=== PATIENT | female | born 1945 | race Caucasian/White ===

== ENCOUNTER 2018-09-11 09:30 | Day surgery (SDC) | payer MEDICARE, BC ==
[2018-09-11] VITALS (9 sets, daily range): BP systolic 107–133; BP diastolic 64–83; PULSE 47–67; TEMP 97.6–98
[~2018-09-11] VITALS: Ht 185.5 cm; Wt 99.0 kg
[2018-09-11] MEDS ORDERED: TENORMIN 2525 MG/TAB PO (10:23)
[2018-09-11] MEDS ORDERED: HCTZ12.5TAB PO (10:24)
[2018-09-11] MEDS ORDERED: ZESTRIL 20MG TA20 MG PO (10:24)
[2018-09-11] MEDS ORDERED: MASON NATURAL1200 MG PO (10:25)
[2018-09-11] MEDS ORDERED: MASON NATURAL2000 IU (10:26)
[2018-09-11] MEDS ORDERED: ASPIRIN E.C. 8181 MG PO (10:27)
[2018-09-11] MEDS ORDERED: LIPITOR 40MG TA40 MG PO (10:27)
[2018-09-11 10:35] LABS: HEMATOCRIT 42.9 % (37.0-47.0); HEMOGLOBIN 14.1 g/dl (12.5-16.0); MEAN CELL VOLUME 84 fl (80.0-100.0); MEAN CORPUSCULAR HEMOGLOBIN 28 pg (27.0-31.0); MEAN CORPUSCULAR HGB CONC 33 g/dl (33.0-37.0); MEAN PLATELET VOLUME 9.9 fl (7.4-10.4); PLATELET COUNT 181 K/mm3 (130-400); PROTHROMBIN TIME 10.9 SECONDS (9.7-12.8)
[2018-09-11 10:37] LABS: CALCIUM 9.3 mg/dL (8.4-10.2); CREATININE, serum 1.42 mg/dL (0.52-1.25); POTASSIUM 4.5 mmol/L (3.4-5.0)
== END 2018-09-11 15:00 | disposition home or self-care (01) ==
LOC: COL.CAR 09:30
PROVIDERS: Internal Medicine Cardiovascular Disease
DX: I25.10 Atherosclerotic heart disease of native coronary artery without angina pectoris (principal); R94.39 Abnormal result of other cardiovascular function study; E78.00 Pure hypercholesterolemia, unspecified; I10 Essential (primary) hypertension; E78.5 Hyperlipidemia, unspecified; Z79.82 Long term (current) use of aspirin; Z82.49 Family history of ischemic heart disease and other diseases of the circulatory system
CPT/HCPCS: J1644; J2250; J3010; Q9967